=== PATIENT | female | born 1980 | race Caucasian/White ===

== ENCOUNTER 2017-05-06 21:17 | Emergency (ER) | payer SELFPAY ==
[~2017-05-06] VITALS: Ht 157.5 cm; Wt 62.4 kg
[2017-05-06 21:26] VITALS: BP 140/62; PULSE 88; RESP 18; TEMP 98; O2SAT 99
[2017-05-06 21:43] LABS: BILIRUBIN, URINE NEG (NEG); BLOOD, URINE NEG (NEG); GLUCOSE,URINE NEG (NEG); KETONE, URINE NEG (NEG); NITRITE,URINE POS (NEG); PH, URINE 5.5 (5.0-8.5); URINE LEUKOCYTE ESTERASE NEG (NEG)
[2017-05-06 21:47] LABS: URINE COLOR STRAW (YELLW/STRAW)
[2017-05-06 21:48] LABS: BACTERIA, URINE MOD /hpf
[2017-05-06 21:49] LABS: WBC, URINE 0-2 /hpf (0-5)
[2017-05-06 21:50] LABS: SQUAMOUS EPITHELIAL CELL URINE 0-5 /hpf (0-5)
--- NOTE | 2017-05-06 22:31 | PD ---
HPI Chief Complaint: Edema Time Seen by Provider: 22:19 Travel History International Travel<30 days: No Contact w/Intl Traveler<30days: No Traveled to known affect area: No History of Present Illness HPI 36-year-old female presents to the emergency department by private transportation for complaint of bilateral lower extremity swelling. Patient states she's had persistent bilateral lower extremity and pedal edema times one week. Patient states she's had this condition intermittently for the past 2 months or longer. Patient has not sought any medical attention until this time due to the fact that symptoms persist this week. No fever no chills no nausea no vomiting no orthopnea or PND or dyspnea on exertion no chest pain no palpitations no pleuritic chest pain no hemoptysis no fever no chills no wheezing no abdominal pain has had some flank pain and urinary frequency. Patient denies history of hypertension dyslipidemia diabetes autoimmune disorder heart failure clotting disorder. Patient long distance travel protracted bedrest her surgical procedure. Patient is physically active and does not do a lot of of chronic sitting or long distance travel. Patient denies any substance use or alcohol use. Patient admits to tobacco use. No recent weight loss or night sweats. Patient reports low back pain and bilateral lower extremity pain 8/10 in intensity. [facility] Past Medical History Narrative Medical Negative past medical history negative surgical history tobacco use occasional alcohol use: No shortness reviewed Medical History: Denies Significant Hx Diminished Hearing: No Immunizations Current: Yes Tetanus Vaccination: < 5 Years Influenza Vaccination: No ?: Not LMP: 04/09/17 : 0 Past Surgical History Surgical History: No Previous Surgery Social History Alcohol Use: Yes (OCC) Tobacco Use: Yes (1/2 PPD) Substance Use: No Allergies-Medications (Allergen,Severity, Reaction): Coded Allergies: amoxicillin (Verified Allergy, Unknown, Anaphylaxis, 05/06/17) Reported Meds & Prescriptions Reported Meds & Active Scripts Active No Active Prescriptions or Reported Medications Review of Systems Except as stated in HPI: all other systems reviewed are Neg Physical Exam Narrative GENERAL: Well-developed well-nourished female in no acute distress no respiratory distress SKIN: Warm and dry. HEAD: Normocephalic. EYES: No scleral icterus. No injection or drainage. NECK: Supple, trachea midline. No JVD or lymphadenopathy. CARDIOVASCULAR: Regular rate and rhythm without murmurs, gallops, or rubs. RESPIRATORY: Breath sounds equal bilaterally. No accessory muscle use. GASTROINTESTINAL: Abdomen soft, non-tender, nondistended. MUSCULOSKELETAL: No cyanosis, bilateral lower leg and pedal edema. BACK: Nontender without obvious deformity. No CVA tenderness. Data Data Last Documented VS Vital Signs Date Time Temp Pulse Resp B/P (MAP) Pulse Ox O2 Delivery O2 Flow Rate FiO2 05/06/17 23:34 80 16 95/51 (66) 100 Room Air 05/06/17 21:26 98.0 Orders Orders Urinalysis - C+S If Indicated (05/06/17 21:33) Ed Urine Pregnancytest Poc (05/06/17 21:33) Urine Culture (05/06/17 21:30) Complete Blood Count With Diff (05/06/17 22:19) Comprehensive Metabolic Panel (05/06/17 22:19) B-Type Natriuretic Peptide (05/06/17 22:19) Drug Screen, Random Urine (05/06/17 22:19) Lipase (05/06/17 22:19) Chest, Single Ap (05/06/17 ) Nitrofurantoin Monohyd Macrocr (Macrobid (05/06/17 23:30) Ct Abd/Pel W/O Iv Contrast (05/06/17 ) Ketorolac Inj (Toradol Inj) (05/06/17 23:30) Ed Discharge Order (05/06/17 23:55) Furosemide (Lasix) (05/07/17 00:00) Labs Laboratory Tests Test 05/06/17 20:30 05/06/17 21:30 05/06/17 22:35 Urine Opiates Screen NEG Urine Barbiturates Screen NEG Urine Amphetamines Screen NEG Urine Benzodiazepines Screen NEG Urine Cocaine Screen NEG Urine Cannabinoids Screen NEG Urine Color STRAW Urine Turbidity SLIGHT Urine pH 5.5 Urine Specific Percival 1.008 Urine Protein NEG mg/dL Urine Glucose (UA) NEG mg/dL Urine Ketones NEG mg/dL Urine Occult Blood NEG Urine Nitrite POS Urine Bilirubin NEG Urine Leukocyte Esterase NEG Urine WBC 0-2 /hpf Urine Squamous Epithelial Cells 0-5 /hpf Urine Bacteria MOD /hpf Microscopic Urinalysis Comment CULTURE INDICATED White Blood Count 5.2 TH/MM3 Red Blood Count 3.96 MIL/MM3 Hemoglobin 12.2 GM/DL Hematocrit 36.1 % Mean Corpuscular Volume 91.3 FL Mean Corpuscular Hemoglobin 30.9 PG Mean Corpuscular Hemoglobin Concent 33.8 % Red Cell Distribution Width 14.1 % Platelet Count 385 TH/MM3 Mean Platelet Volume 6.9 FL Neutrophils (%) (Auto) 36.8 % Lymphocytes (%) (Auto) 53.7 % Monocytes (%) (Auto) 5.2 % Eosinophils (%) (Auto) 4.0 % Basophils (%) (Auto) 0.3 % Neutrophils # (Auto) 1.9 TH/MM3 Lymphocytes # (Auto) 2.8 TH/MM3 Monocytes # (Auto) 0.3 TH/MM3 Eosinophils # (Auto) 0.2 TH/MM3 Basophils # (Auto) 0.0 TH/MM3 CBC Comment DIFF FINAL Differential Comment Blood Urea Nitrogen 9 MG/DL Creatinine 0.67 MG/DL Random Glucose 82 MG/DL Total Protein 8.0 GM/DL Albumin 3.6 GM/DL Calcium Level 9.1 MG/DL Alkaline Phosphatase 76 U/L Aspartate Amino Transf (AST/SGOT) 42 U/L Alanine Aminotransferase (ALT/SGPT) 33 U/L Total Bilirubin 0.2 MG/DL Sodium Level 138 MEQ/L Potassium Level 3.7 MEQ/L Chloride Level 105 MEQ/L Carbon Dioxide Level 27.8 MEQ/L Anion Gap 5 MEQ/L Estimat Glomerular Filtration Rate 101 ML/MIN B-Type Natriuretic Peptide 38 PG/ML Lipase 102 U/L MDM Medical Decision Making Medical Screen Exam Complete: Yes Emergency Medical Condition: Yes Medical Record Reviewed: Yes Interpretation(s) UA: Positive bacteria positive nitrites; culture indicated poc hcg: negative Last Impressions Chest X-Ray 05/06/17 0000 Signed Impressions: Service Date/Time: Saturday, May 06, 2017 22:41 - CONCLUSION: No acute disease. Hemal Dumont MD Vital Signs Date Time Temp Pulse Resp B/P (MAP) Pulse Ox O2 Delivery O2 Flow Rate FiO2 05/06/17 23:34 80 16 95/51 (66) 100 Room Air 05/06/17 22:00 88 18 99 Room Air 05/06/17 21:26 98.0 88 18 140/62 (88) 99 CBC & BMP Diagram 05/06/17 22:35 Total Protein 8.0, Albumin 3.6, Calcium Level 9.1, Alkaline Phosphatase 76, Aspartate Amino Transf (AST/SGOT) 42 H, Alanine Aminotransferase (ALT/SGPT) 33, Total Bilirubin 0.2 Differential Diagnosis Dependent edema, lymphedema, CHF, DVT, renal insufficiency, hypoproteinemia, dehydration, uti, , htn Narrative Course Specimens collected and sent for resulting Urinalysis abnormal with positive nitrites and bacteria culture indicated patient given oral Macrobid Labs resulted and renal function within normal limits chest x-ray reveals no infiltrate Patient stable for outpatient management and follow-up with primary care provider; Provided a prescription for Macrobid Diagnosis Primary Impression: UTI (urinary tract infection) Qualified Codes: N30.00 - Acute cystitis without hematuria Additional Impression: 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 Referrals: [facility] call for appointment Patient Instructions: General Instructions Additional Instructions: Increase fluid hydration Elevate lower extremities Complete course of antibiotic as prescribed Take acetaminophen/Tylenol as needed for fever 100.4F or greater Follow-up with primary care provider or his area health Return to the emergency department for a concerns or change in condition Med/Other Pt SpecificInfo: Prescription(s) given Scripts Nitrofurantoin Monohydrate Macrocrystals (Macrobid) 100 Mg Cap 100 MG PO BID for Infection for 10 Days, #20 CAP 0 Refills Prov: Cyndy Jimenez MD 05/06/17 Disposition: 01 DISCHARGE HOME Condition: Stable Cyndy Jimenez MD May 06, 2017 22:31
--- NOTE | 2017-05-06 22:51 | RADRPT ---
EXAM DATE/TIME: 05/06/2017 22:41 [place] COMPARISON: No previous studies available for comparison. INDICATIONS : Lower extremity swelling for 1 week. MEDICAL HISTORY : None. SURGICAL HISTORY : None. ENCOUNTER: Initial ACUITY: 1 week PAIN SCORE: 0/10 LOCATION: Bilateral chest FINDINGS: A single view of the chest demonstrates the lungs to be symmetrically aerated without evidence of mas s, infiltrate or effusion. The cardiomediastinal contours are unremarkable. Osseous structures are intact. CONCLUSION: No acute disease. Hemal Dumont MD on May 06, 2017 at 22:48 Board Certified Radiologist. This report was verified electronically.
[2017-05-06 22:52] LABS: CHLORIDE 105 MEQ/L (98-107); SODIUM (NA) 138 MEQ/L (136-145)
[2017-05-06 22:53] LABS: AUTOMATED NEUTROPHIL # 1.9 TH/MM3 (1.8-7.7); BASOPHIL % 0.3 % (0.0-2.0); EOSINOPHIL # 0.2 TH/MM3 (0-0.4); HEMATOCRIT 36.1 % (35.0-46.0); HEMOGLOBIN 12.2 GM/DL (11.6-15.3); LYMPH % 53.7 % (9.0-44.0); LYMPHOCYTE # 2.8 TH/MM3 (1.0-4.8); MEAN CELL VOLUME 91.3 FL (80.0-100.0); MEAN CORPUSCULAR HEMOGLOBIN 30.9 PG (27.0-34.0); MEAN CORPUSCULAR HGB CONC 33.8 % (32.0-36.0); MEAN PLATELET VOLUME 6.9 FL (7.0-11.0); MONO % 5.2 % (0.0-8.0); MONOCYTE # 0.3 TH/MM3 (0-0.9); NEUT % 36.8 % (16.0-70.0); PLATELET COUNT 385 TH/MM3 (150-450); RED BLOOD COUNT 3.96 MIL/MM3 (4.00-5.30); RED CELL DISTRIBUTION WIDTH 14.1 % (11.6-17.2); WHITE BLOOD COUNT 5.2 TH/MM3 (4.0-11.0)
[2017-05-06 22:55] LABS: CALCIUM 9.1 MG/DL (8.5-10.1)
[2017-05-06 22:56] LABS: ALBUMIN 3.6 GM/DL (3.4-5.0); BICARBONATE 27.8 MEQ/L (21.0-32.0); BLOOD UREA NITROGEN 9 MG/DL (7-18); GLUCOSE,RANDOM 82 MG/DL (74-106)
[2017-05-06 22:59] LABS: ALT (GPT) 33 U/L (10-53); AST (GOT) 42 U/L (15-37); CREATININE 0.67 MG/DL (0.50-1.00); GLOMERULAR FILTRATION RATE 101 ML/MIN (>89)
[2017-05-06 23:00] LABS: TOTAL BILIRUBIN ADULT 0.2 MG/DL (0.2-1.0)
[2017-05-06 23:02] LABS: ALKALINE PHOSPHATASE 76 U/L (45-117)
[2017-05-06] MEDS ORDERED: NITROFURANTOIN MONOHYD MACROCR 100 MG CAP PO ONE (23:30)
[2017-05-06] MEDS ORDERED: KETOROLAC TROMETHAMINE 30 MG/ML (IVP) VIAL IV PUSH ONE (23:30)
[2017-05-06 23:34] VITALS: BP 95/51; PULSE 80; RESP 16; O2SAT 100
[2017-05-06] MEDS ORDERED: MACR100C2 PO (23:59)
[2017-05-07] MEDS ORDERED: FUROSEMIDE 20 MG TAB PO ONE
== END 2017-05-07 00:16 | disposition home or self-care (01) ==
LOC: PHED 21:17
DX: N30.00 Acute cystitis without hematuria (principal); R60.0 Localized edema; I87.2 Venous insufficiency (chronic) (peripheral); B96.20 Unspecified Escherichia coli [E. coli] as the cause of diseases classified elsewhere; F17.210 Nicotine dependence, cigarettes, uncomplicated; Z88.0 Allergy status to penicillin
CPT/HCPCS: 71045; 80053; 80307; 81001; 83690; 83880; 84703; 85025; 87077; 87086; 87186; 96374; 99284; J1885